=== PATIENT | female | born 1945 | race Caucasian/White ===

== ENCOUNTER 2016-12-17 17:58 | Inpatient (IN) | payer MEDICARE, OTHER ==
[~2016-12-17] VITALS: Ht 162.6 cm; Wt 86.8 kg
[~2016-12-17 17:58] MED LIST: POTASSIUM CHLO20 ME1 PO
[2016-12-19 04:33] LABS: HEMOGLOBIN 9.9 gm/dl (12.3-15.3); RED BLOOD COUNT 3.48 M/UL (4.00-5.10); WHITE BLOOD COUNT 9.2 K/UL (4.5-11.0)
[2016-12-19] MEDS ORDERED: LACTULOSE20 GM/30 M PO (10:59)
[2016-12-19] MEDS ORDERED: MIRALAX17 GM PO (11:00)
[2016-12-19] MEDS ORDERED: ASPIRIN EC81 MG PO (11:01)
[2016-12-19] MEDS ORDERED: LEVOTHYROXINE75 MCG PO (11:01)
[2016-12-19] MEDS ORDERED: PANTOPRAZOLE SO40 MG PO (11:01)
[2016-12-19] MEDS ORDERED: CARDURA 2MG TAB2 MG PO (11:02)
[2016-12-19] MEDS ORDERED: LORTAB 5-325 M1 EACH PO (11:02)
[2016-12-19] MEDS ORDERED: LIPITOR TAB 1010 MG PO (11:03)
[2016-12-19] MEDS ORDERED: ISOSORBIDE MONO60 MG PO (11:03)
[2016-12-19] MEDS ORDERED: HYDRALAZINE HCL50 MG PO (11:03)
[2016-12-19] MEDS ORDERED: METOPROLOL TART25 MG PO (11:05)
[2016-12-19] MEDS ORDERED: FUROSEMIDE80 MG PO (11:06)
[2016-12-19] MEDS ORDERED: NORVASC 5 MG TAB5 MG PO (11:07)
[2016-12-19] MEDS ORDERED: ZYLOPRIM 100 M100 MG PO (11:08)
[2016-12-19] MEDS ORDERED: NEURONTIN 100100 MG PO (11:09)
[2016-12-19] MEDS ORDERED: CALCITRIOL0.25 MCG PO (11:09)
[2016-12-19] MEDS ORDERED: DOC-Q-LACE100 MG PO (11:09)
[2016-12-19] MEDS ORDERED: MONTELUKAST SOD10 MG PO (11:11)
[2016-12-19] MEDS ORDERED: ZOFRAN ODT 4 MG4 MG PO (11:11)
[2016-12-19] MEDS ORDERED: DILTIAZEM 24HR360 MG PO (11:12)
[2016-12-19] MEDS ORDERED: CORDARONE 200M200 MG PO (11:12)
[2016-12-19] MEDS ORDERED: IPRAT-ALBUT 0.5-3 ML INH (11:14)
[2016-12-19] MEDS ORDERED: FISH OIL 10001000 MG PO (11:16)
[2016-12-19] MEDS ORDERED: CLARITIN10 M2 PO (11:17)
[2016-12-19] MEDS ORDERED: COLCHICINE0.6 M1 PO (11:17)
[2016-12-19] MEDS ORDERED: RENAL CAPS SOFTG1 MG PO (11:18)
[2016-12-19] MEDS ORDERED: ZANTAC150 MG PO (11:18)
[2016-12-20 06:01] LABS: HEMOGLOBIN 9.9 gm/dl (12.3-15.3); RED BLOOD COUNT 3.51 M/UL (4.00-5.10); WHITE BLOOD COUNT 9.3 K/UL (4.5-11.0)
[2016-12-21 05:56] LABS: HEMOGLOBIN 9.8 gm/dl (12.3-15.3); RED BLOOD COUNT 3.52 M/UL (4.00-5.10); WHITE BLOOD COUNT 11.1 K/UL (4.5-11.0)
[2016-12-23 06:27] LABS: HEMOGLOBIN 9.7 gm/dl (12.3-15.3); RED BLOOD COUNT 3.42 M/UL (4.00-5.10); WHITE BLOOD COUNT 9.1 K/UL (4.5-11.0)
[2016-12-24 04:27] LABS: HEMOGLOBIN 9.6 gm/dl (12.3-15.3); RED BLOOD COUNT 3.41 M/UL (4.00-5.10)
[2016-12-24 04:32] LABS: WHITE BLOOD COUNT 6.7 K/UL (4.5-11.0)
[2016-12-24 04:45] LABS: BUN/CREATININE RATIO 49 (0-10)
[2016-12-24] MEDS ORDERED: PROAIR HFA8.5 GM INH (11:00)
[2016-12-24] MEDS ORDERED: K-DUR TAB 20 M20 MEQ PO (11:15)
== END 2016-12-24 13:47 | disposition home health service (06) | DRG 682 ==
LOC: M/S 12-19 01:12
PROVIDERS: Family Medicine; Internal Medicine; Internal Medicine Nephrology; ADMIT Hospitalist
DX: N17.0 Acute kidney failure with tubular necrosis (principal); I50.33 Acute on chronic diastolic (congestive) heart failure; I13.0 Hypertensive heart and chronic kidney disease with heart failure and stage 1 through stage 4 chronic kidney disease, or unspecified chronic kidney disease; E87.1 Hypo-osmolality and hyponatremia; J96.10 Chronic respiratory failure, unspecified whether with hypoxia or hypercapnia; K92.1 Melena; E11.22 Type 2 diabetes mellitus with diabetic chronic kidney disease; E11.65 Type 2 diabetes mellitus with hyperglycemia; N18.4 Chronic kidney disease, stage 4 (severe); I48.0 Paroxysmal atrial fibrillation; J44.9 Chronic obstructive pulmonary disease, unspecified; E87.5 Hyperkalemia; D63.1 Anemia in chronic kidney disease; E03.9 Hypothyroidism, unspecified; E78.5 Hyperlipidemia, unspecified; I27.2 Other secondary pulmonary hypertension; I08.1 Rheumatic disorders of both mitral and tricuspid valves; E66.01 Morbid (severe) obesity due to excess calories; D50.9 Iron deficiency anemia, unspecified; F03.90 Unspecified dementia, unspecified severity, without behavioral disturbance, psychotic disturbance, mood disturbance, and anxiety; M19.90 Unspecified osteoarthritis, unspecified site; M10.9 Gout, unspecified; H91.90 Unspecified hearing loss, unspecified ear; Z87.891 Personal history of nicotine dependence; Z91.19 Patient's noncompliance with other medical treatment and regimen; Z99.81 Dependence on supplemental oxygen; Z79.51 Long term (current) use of inhaled steroids; Z79.899 Other long term (current) drug therapy; Z68.32 Body mass index [BMI] 32.0-32.9, adult; Z88.0 Allergy status to penicillin; Z88.7 Allergy status to serum and vaccine; Z90.49 Acquired absence of other specified parts of digestive tract; Z98.890 Other specified postprocedural states; Z82.49 Family history of ischemic heart disease and other diseases of the circulatory system
CPT/HCPCS: ECHO; 36415; 71010; 74000; 80048; 80053; 82270; 82570; 82728; 83036; 83540; 83550; 83735; 83970; 84100; 84132; 84156; 84300; 84443; 85027; 89050; 93306; 94640; 94664; 97116; 97530; J1756; J7050